=== PATIENT | female | born 1970 | race Caucasian/White ===

== ENCOUNTER 2025-01-29 12:42 | Inpatient (IN) | payer BC ==
[~2025-01-29] VITALS: Ht 165.1 cm; Wt 74.4 kg
[2025-01-29 13:10] VITALS: BP 111/78; PULSE 76; RESP 16; TEMP 97.3; O2SAT 96
[2025-01-29] MEDS ORDERED: mag hydrox/Alum hydrox/simeth 30ml oral suspension PO PRN (13:20)
[2025-01-29] MEDS ORDERED: magnesium hydroxide 30ml (MOM) UD suspension PO PRN (13:20)
[2025-01-29] MEDS ORDERED: TIRZ12.5 SQ (14:18)
[2025-01-29 14:30] VITALS: RESP 16; O2SAT 96
[2025-01-29] MEDS ORDERED: HYDR200T73 PO (14:40)
[2025-01-29] MEDS ORDERED: ATOR40TA PO (14:40)
[2025-01-29] MEDS ORDERED: CLON0.1T2 PO (14:40)
[2025-01-29] MEDS ORDERED: PANT40TA54 PO (14:40)
[2025-01-29] MEDS ORDERED: VALS1TAB76 PO (14:40)
[2025-01-29 19:00] VITALS: RESP 16; O2SAT 98
[2025-01-29 20:00] VITALS: BP 102/67; PULSE 90; RESP 16; TEMP 96.6; O2SAT 98
[2025-01-29] MEDS: pantoprazole 40mg Tablet.DR PO SCH (20:51)
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
[2025-01-30 07:30] VITALS: BP 115/76; PULSE 72; RESP 18; TEMP 98.2; O2SAT 97
[2025-01-30 08:04] LABS: MEAN PLATELET VOLUME 8.9 FL (7.4-10.4); RED CELL DISTRIBUTION WIDTH 13.8 % (11.5-14.5)
[2025-01-30 08:49] LABS: CHOL/HDL RATIO 4.1 (0.00-4.99); CREATININE 0.80 MG/DL (0.40-0.90); LDL CHOLESTEROL 120 MG/DL (50-100); TOTAL CARBON DIOXIDE 28.3 MMOL/L (24-32); eCRCL 72 ML/MIN; eGFR 75 ML/MIN
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
[2025-01-30 19:00] VITALS: RESP 16; O2SAT 99
[2025-01-30 20:00] VITALS: BP 99/63; PULSE 90; RESP 16; TEMP 98.9; O2SAT 99
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
[2025-01-31 07:00] VITALS: RESP 12; O2SAT 97
[2025-01-31 08:00] VITALS: BP 104/62; PULSE 69; RESP 12; TEMP 97.4; O2SAT 97
[2025-01-31] MEDS ORDERED: CEPH-585 PO (16:32)
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
[2025-02-02] MEDS ORDERED: TYPE IN GENERIC & BRAND NAME OF PATIENT MED STRENGTH & FORM SQ SCH (08:00)
== END 2025-01-31 17:45 | disposition home or self-care (01) | DRG 881 ==
LOC: ADULT MH 13:08
PROVIDERS: ADMIT Psychiatry & Neurology Psychiatry; ATTEND Psychiatry & Neurology Psychiatry
DX: F32.9 Major depressive disorder, single episode, unspecified (principal); E11.65 Type 2 diabetes mellitus with hyperglycemia; M32.9 Systemic lupus erythematosus, unspecified; R45.851 Suicidal ideations; G40.909 Epilepsy, unspecified, not intractable, without status epilepticus; E78.00 Pure hypercholesterolemia, unspecified; I10 Essential (primary) hypertension; F41.1 Generalized anxiety disorder; K21.9 Gastro-esophageal reflux disease without esophagitis; M79.7 Fibromyalgia; Z90.711 Acquired absence of uterus with remaining cervical stump
CPT/HCPCS: 36415; 80053; 80061; 83036; 84443; 85025; 87081